=== PATIENT | female | born 1995 | race Caucasian/White ===

== ENCOUNTER 2023-12-29 10:16 | Emergency (ER) | payer BC, SELFPAY ==
[2023-12-29 10:17] VITALS: BP 158/88; PULSE 108; RESP 16; TEMP 36.3; O2SAT 100; BMI 32.9
--- NOTE | 2023-12-29 10:33 | EX.ED.DYSGE1 ---
HPI History of Present Illness Chief Complaint: Back Informant: patient Narrative Narrative: Patient presents secondary to back pain and fever. She has had low back pain since late October. She points to the lower lumbar midline area. She states pain is worse with movement or flexing forward. There was no known injury. She has never had surgery or injections. She states last evening she developed a fever of 102.3 but had no other symptoms. Patient denies cough or congestion. She denies dysuria or frequency. Patient denies IV drug use. PFSH PFS Medical History no medical history no medical history Home Medications lidocaine 5 % topical patch (Lidoderm) 1 patch topical DAILY #15 ea 12/29/23 [Rx Last Taken Unknown] naproxen 500 mg tablet (Naprosyn) 500 mg PO BID PRN pain #20 tabs 12/29/23 [Rx Last Taken Unknown] sulfamethoxazole 800 mg-trimethoprim 160 mg tablet (Bactrim DS) 1 tab PO BID #14 tabs 12/29/23 [Rx Last Taken Unknown] Allergy/AdvReac Type Severity Reaction Status Date / Time No Known Allergies Allergy Verified 12/29/23 10:19 Social History Smoking Status: Never smoker ROS ROS ED Constitutional Constitutional ED: Reports fever(s); Denies chills Eyes Eyes: Denies discharge from eye(s) ENT ENT ED: Denies discharge from eye(s), rhinorrhea or sore throat Cardiovascular Cardiovascular: Denies chest pain or palpitations Respiratory/Chest Respiratory/Chest: Denies cough or dyspnea Gastrointestinal Gastrointestinal: Denies abdominal pain, nausea or vomiting Genitourinary Genitourinary ED: Denies difficulty urinating or dysuria Musculoskeletal Musculoskeletal: Reports back pain; Denies extremity pain Integumentary Denies Abrasions or rash Neurologic Neurologic: Denies headache(s), paresthesias or weakness Psychiatric Psychiatric: Denies anxiety or depression Allergic/Immunologic Allergic/Immunologic ED: Denies lip swelling or urticaria EXAM Physical Exam Const Vital Signs: 12/29/23 10:17 Temperature 97.3 F L Temperature Source Temporal Pulse Rate 108 H Respiratory Rate 16 Blood Pressure 158/88 H Blood Pressure Mean 111 Pulse Ox 100 Oxygen Delivery Method Room Air Positive well nourished and well developed General Appearance ED: well developed HEENT Reports moist mucous membranes Eyes EOMs intact bilaterally Chest Wall inspection of chest normal and palpation of chest normal Resp normal respiratory effort and clear to auscultation bilaterally Cardio regular rate and regular rhythm GI non-tender Palpation: soft Back/Spine Back/Spine Narrative: Mild tenderness in the low lumbar midline and paraspinal muscles. No erythema or overlying skin change. No focal point tenderness. General Back: CVA tenderness left Neuro oriented x3 and no sensory deficits noted Motor Exam: strength 5/5 throughout Psych mental status grossly normal Skin no rashes or lesions noted MDM MDM MDM Narrative Medical decision making narrative: IV line initiated. Labwork obtained to evaluate for leukocytosis, anemia, and electrolyte derangement. Urinalysis obtained to evaluate for infection/hematuria. Swab for COVID, influenza, and RSV obtained. History & Record Review Discussion w/independent historian: Patient and Family Lab Data Attestation: I reviewed the patient's lab results. Labs: Laboratory Results - last 24 hr 12/29/23 12/29/23 12/29/23 10:37 10:44 11:55 WBC 5.4 RBC 5.25 Hgb 14.7 Hct 45.3 MCV 86.3 MCH 28.0 MCHC 32.5 RDW Std Deviation 39.7 RDW Coeff of Javier 12.6 Plt Count 248 MPV 10.4 Immature Gran % (Auto) 0.200 Neut % (Auto) 65.4 Lymph % (Auto) 23.7 [place] % (Auto) 9.5 Eos % (Auto) 0.6 Baso % (Auto) 0.6 Absolute Neuts (auto) 3.5 Absolute Lymphs (auto) 1.27 Nucleated RBC % 0 ESR 15 Sodium 141 Potassium 3.5 Chloride 109 H Carbon Dioxide 25.0 Anion Gap 7 BUN 12 Creatinine 1.20 H Estim Creat Clear Calc 84.25 Est GFR (MDRD) Af Amer 69 Est GFR (MDRD) Non-Af 57 L BUN/Creatinine Ratio 10.0 Glucose 96 Calcium 9.0 C-React Prot Ext Range 25.10 H Serum , Qual NEGATIVE Urine Color Yellow Yellow Urine Clarity Clear Cloudy Urine pH 5.0 5.0 Ur Specific [place] 1.025 1.025 Urine Protein 15 H 100 H Urine Glucose (UA) Normal Normal Urine Ketones 5 H 5 H Urine Occult Blood 25 H 25 H Urine Nitrite Negative Negative Urine Bilirubin Negative 1 H Urine Urobilinogen 1 H 4 H Ur Leukocyte Esterase 100 H 100 H Urine RBC 0 SEEN 5-10 SEEN Urine WBC 5-10 SEEN 5-10 SEEN Ur Squamous Epith Cells 10-25 SEEN 5-10 SEEN Urine Bacteria 2+ 1+ Urine Mucus 0 SEEN 0 SEEN Treatment and Re-Evaluation :: CBC was normal white count 5.4 with normal differential. Chemistry studies significant only for a creatinine 1.20. No prior studies available for comparison. CRP is elevated at 25 but sed rate is normal. test negative. Initial urinalysis showed 2+ bacteria with 10-25 epithelial cells and 5-10 white cells. Because this was not a clean sample I did ask for a repeat urinalysis. Her repeat sample continues to show 5-10 white cells with 1+ bacteria and 5-10 white cells. Given the patient is having left CVA pain I will go ahead and treat this as an acute infection. She will be treated with a 1 week course of Bactrim. I will also write her anti-inflammatories and Lidoderm patches for her back. I did explain to the patient and family at bedside that I do not feel she has an acute infection in her back. She is been having ongoing back pain for 2 months. She has a normal neurologic exam. She does not have any risk factors for discitis or other acute focal back infection. Discharge Plan Triage Chief Complaint: Back ED Provider: Tonya Solitario Dx/Rx/DC Orders Clinical Impression: Pyelonephritis, Musculoskeletal back pain Instructions: ED Back and Neck Pain, General, ED Pyelonephritis, Female (Adult) Prescriptions: New sulfamethoxazole-trimethoprim [Bactrim DS] 800-160 mg tablet 1 tab PO BID Qty: 14 0RF lidocaine [Lidoderm] 5 % adhesive patch,medicated 1 patch topical DAILY Qty: 15 0RF Rx Instructions: leave on most painful area for up to 12 hrs naproxen [Naprosyn] 500 mg tablet 500 mg PO BID PRN (Reason: pain) Qty: 20 0RF Primary Care Provider: Care Physician,No Primary Referrals: Orestes Romo MD [Med Staff - Active Staff] - 1-2 Weeks Care Physician,No Primary [Primary Care Provider] - Disposition Disposition: Home, Self Care
[2023-12-29] MEDS: Ketorolac 15 MG/ML Vial IV (10:42)
[2023-12-29] MEDS: 0.9% Normal Saline (500mL Bag) 500 ML 1000 ML IV (10:42)
[2023-12-29 10:45] LABS: Mucous, Urine 0 SEEN /hpf (<or=2+); Red Blood Cells-Urine 0 SEEN /hpf (0-5)
[2023-12-29 11:00] LABS: Glucose, Dipstick Normal (Normal); Ketone-Dipstick 5 mg/dl (Negative); Leukocyte Esterase-Dipstick 100 /ul (Negative); Nitrite-Dipstick Negative (Negative); Occult Blood-Urine 25 /ul (Negative); Protein-Dipstick 15 mg/dl (Negative); Specific Gravity, Urine 1.025 (1.002-1.030); Urine Bilirubin Dipstick Negative (Negative); Urine Urobilinogen 1 mg/dl (Normal)
[2023-12-29 11:02] LABS: Color, Urine Yellow (Yellow); Urine Clarity Clear (Clear)
[2023-12-29 11:05] LABS: Anion Gap 7 (5-15); BUN 12 mg/dL (7-18); Chloride 109 mmol/L (98-107); EST Glomerular Filtration Rate 57 mL/min (>60); Est Glom Filt Rate - Afr Amer 69 mL/min (>60); Estimated Creatinine Clearance 84.25 ml/min; Glucose 96 mg/dL (74-106); Potassium 3.5 mmol/L (3.5-5.1); Sodium Level 141 mmol/L (136-145)
[2023-12-29 11:08] LABS: Bacteria 2+ /hpf (None Seen); Squamous Epithelial Cells - UA 10-25 SEEN /hpf (5-10)
[2023-12-29 11:09] LABS: White Blood Cells 5-10 SEEN /hpf (0-5)
[2023-12-29 11:28] LABS: Internal QC Validated? YES +Cl - CLEAR BKGD; Pregnancy, Serum, hCG Quali. NEGATIVE Negative
[2023-12-29 11:55] LABS: Absolute Lymphocyte Count 1.27 X10^3/uL (0.83-4.51); Absolute Neutrophil Count 3.5 X10^3/uL (2.0-7.7); Basophil# 0.03 X10^3/uL; Basophil% 0.6 % (0-1); Eosinophil# 0.03 X10^3/uL; Eosinophils% 0.6 % (0-5); Hematocrit 45.3 % (37-47); Hemoglobin 14.7 g/dL (12.0-15.0); Lymphocyte # 1.27 X10^3/ul (0.83-4.51); Lymphocyte % 23.7 % (19-41); Mean Corp Hgb Conc 32.5 g/dL (32-36); Mean Corpuscular Volume 86.3 fL (81-99); Mean Platelet Vol. 10.4 fl (6.2-12.0); Monocyte# 0.51 X10^3/uL; Monocyte% 9.5 % (0-10); NRBC Flagged by Analyzer 0 % (0-5); Neutrophil % 65.4 % (47-70); Platelet Count 248 K/mm3 (150-450); RBC Distribution Width CV 12.6 % (11.6-14.6); RBC Distribution Width SD 39.7 fl (35.1-43.9); Red Blood Count 5.25 M/mm3 (4.2-5.4); White Blood Count 5.4 K/mm3 (4.4-11.0)
[2023-12-29 12:01] LABS: Erythrocyte Sedimentation Rate 15 mm/hr (0-30)
[2023-12-29 12:16] LABS: Mucous, Urine 0 SEEN /hpf (<or=2+)
[2023-12-29 12:24] LABS: Color, Urine Yellow (Yellow); Glucose, Dipstick Normal (Normal); Ketone-Dipstick 5 mg/dl (Negative); Leukocyte Esterase-Dipstick 100 /ul (Negative); Nitrite-Dipstick Negative (Negative); Occult Blood-Urine 25 /ul (Negative); Protein-Dipstick 100 mg/dl (Negative); Specific Gravity, Urine 1.025 (1.002-1.030); Urine Clarity Cloudy (Clear); Urine Urobilinogen 4 mg/dl (Normal)
[2023-12-29 12:30] LABS: Urine Bilirubin Dipstick 1 mg/dL (Negative)
[2023-12-29 12:34] LABS: Bacteria 1+ /hpf (None Seen); Red Blood Cells-Urine 5-10 SEEN /hpf (0-5); Squamous Epithelial Cells - UA 5-10 SEEN /hpf (5-10); White Blood Cells 5-10 SEEN /hpf (0-5)
[2023-12-29] MEDS: Smz/Tmp Ds Tablet 1 TABLET PO (12:52)
[2023-12-29] MEDS: Lidocaine 5% Patch 1 PATCH TOPICAL (12:52)
[2023-12-29 12:56] VITALS: BP 118/74; PULSE 80; RESP 12; TEMP 36.7; O2SAT 99
== END 2023-12-29 12:57 | disposition home or self-care (01) ==
PROVIDERS: Emergency Provider Emergency Medicine; Visit Provider Emergency Medicine
DX: N10 Acute pyelonephritis (principal); M54.50 Low back pain, unspecified
CPT/HCPCS: 80048; 81001; 84703; 85025; 85652; 86140; 87631; 96361; 96374; 99283; J7040; A4216